=== PATIENT | female | born 1970 | race Caucasian/White ===

== ENCOUNTER 2018-08-26 21:12 | Inpatient (IN) ==
[2018-08-26 21:32] LABS: BASO# 0.03 X1000 (0.0-0.2); BASO% 0.4 % (0.0-0.8); EOS# 0.18 X1000 (0.0-0.7); EOS% 2.5 % (0.0-10.0); HEMATOCRIT 38.5 % (37.0-47.0); HEMOGLOBIN 11.6 g/dL (12.0-16.0); LYMPH# 1.72 X1000 (1.2-3.4); LYMPH% 24.2 % (20.5-51.1); MCH 23.2 PG (27-31); MCHC 30.1 g/dL (33-37); MCV 76.8 FL (81-99); MONO# 0.41 X1000 (0.11-0.59); MONO% 5.8 % (1.7-9.3); MPV 11.1 FL (7.4-10.4); NEUT# 4.78 X1000 (1.4-6.5); NEUT% 67.1 % (42.2-75.2); PLT 229 X1000 (130-400); RBC 5.01 XMIL (4.2-5.4); WBC 7.12 X1000 (4.8-10.8)
[2018-08-26 22:19] LABS: ALB/GLOB RATIO 0.9; ALBUMIN 3.5 g/dL (3.5-5.0); CALCIUM 8.5 mg/dL (8.8-10.2); CREATININE 1.3 mg/dL (0.5-0.9); TOTAL BILIRUBIN 0.44 mg/dL (0.20-1.00); TOTAL PROTEIN 7.6 g/dL (6.3-8.3)
[2018-08-26 22:21] LABS: POTASSIUM 1.8 mmol/L (3.5-5.1)
[2018-08-26] MEDS ORDERED: POTASSIUM CHLORIDE 40 MEQ in NS 1,000 ML IV ONE (23:30)
[2018-08-26] MEDS ORDERED: KLOR-CON PO ONE (23:31)
--- NOTE | 2018-08-27 00:08 | PROVIDER DOCUMENTATION ---
This chart was entered by Aldair Avitia Scribe, acting as scribe for Orlando Casanova MD. HPI-General Adult - General Chief Complaint: Abnormal Lab[s] Stated Complaint: FREE CLINIC REFERRAL, ABNORMAL LABWORK Time Seen by Provider: 08/26/18 23:32 Source: patient Allergies/Adverse Reactions: Patient Allergies Allergy/AdvReac Type Severity Reaction Status Date / Time No Known Allergies Allergy Verified 05/28/16 19:14 Home Medications: Home Medication List Medication Instructions Recorded Confirmed Last Taken Type Albuterol Sulfate Inhaler 2 puff INH Q6H PRN PRN 01/16/13 06/12/17 05/28/16 History [Ventolin Hfa] Alprazolam [Alprazolam Odt] 0.5 mg PO PRN PRN 01/16/13 06/12/17 05/28/16 History Lisinopril/Hydrochlorothiazide 1 each PO DAILY 01/16/13 06/12/17 05/28/16 History [Lisinopril-Hctz 20-12.5 mg Tab] Cetirizine HCl [Zyrtec] 1 tab PO DAILY 05/28/16 06/12/17 05/28/16 History D-Methorphan/P-Epd/Bpm [Bromfed Dm 5 ml PO Q4H PRN #120 ml 06/12/17 Unknown Rx Liquid] Oseltamivir [Tamiflu] 75 mg PO BID #10 cap 06/12/17 Unknown Rx CefDINIR [Omnicef] 300 mg PO BID 10 Days #20 cap 08/23/18 Unknown Rx Fexofenadine [Marah] 180 mg PO DAILY #30 tab 08/23/18 Unknown Rx Guaifenesin [Guaifenesin ER] 1,200 mg PO BID #14 tab.er.12h 08/23/18 Unknown Rx Methylprednisolone [Medrol Dosepak] 4 mg PO DIRECTED #1 pkg 08/23/18 Unknown Rx Neomycin/Polymyxin B Sulf/Hc 1 b OT DIRECTED 7 Days #1 b 08/23/18 Unknown Rx [Dzaxzcqe-Nmshzlwwp-If Ear Susp] - History of Present Illness -Gen Adult Nature of Presenting Problems: Pt is a 47 y/o F sent to the ED by Dr Mohamud office for a K+ 1.9. Pt denies pain and injury. She c/o of weakness. She reports not taking a potassium supplement even though she take a diuretic. Location of Pain/Injury: reports: none Pain Radiation: reports: no radiation Quality of Pain: reports: none Severity: reports: mild Onset/Duration: reports: gradual Similar Symptoms Previously?: No Recently seen or treated by another doctor?: No Review of Systems - Adult - REVIEW OF SYSTEMS - ADULT Constitutional: reports: other (weakness). denies: chills, fever Eyes: reports: no symptoms reported Ears, Nose, Mouth & Throat: reports: no symptoms reported Cardiovascular: denies: chest pain, edema, palpitations, syncope Respiratory: denies: cough, shortness of breath, wheezing Gastrointestinal: denies: abdominal pain, nausea, vomiting Genitourinary: reports: no symptoms reported Musculoskeletal: denies: back pain, neck pain Integumentary: reports: no symptoms reported Neurological: denies: dizziness/vertigo, headache/migraines Psychiatric: reports: no symptoms reported Endocrine: reports: no symptoms reported Hematologic/Lymphatic: reports: no symptoms reported Allergic/Immunologic: reports: no symptoms reported All Other Systems: Reviewed and Negative Past History - Adult - PAST MEDICAL HISTORY-ADULT Review of Records: reports: Old Records Reviewed, Nursing Assessment Review, Medications Reviewed Cardiovascular: reports: HTN Respiratory: reports: asthma Psychiatric: reports: anxiety - PRIOR SURGERIES/PROCEDURES Surgical/Procedure History: reports: BTL - IMMUNIZATION STATUS Childhood Immunizations: See Nurse Assessment Flu Vaccine: See Nurse Assessment - FAMILY HISTORY Family History: reviewed, not pertinent - SOCIAL HISTORY Smoking: cigarettes, less than 1 pack/day Living Situation: family Physical Exam-General - PHYSICAL EXAM-ADULT Initial Vital Signs Reviewed: Yes - CONSTITUTIONAL General Appearance: appears well, alert, no apparent distress - EYES Eyes: PERRL/EOMI, pink conjunctivae - HEAD, EARS, NOSE, MOUTH & THROAT HENMT: moist mucous membranes, normal ENT inspection, pharynx normal - NECK Neck: non-tender, full range of motion, supple, normal inspection - RESPIRATORY Respiratory: lungs clear, normal breath sounds, no pleuratic chest pain, no respiratory distress, no accessory muscle use - CARDIOVASCULAR Cardiovascular: normal peripheral pulses, regular rate, rhythm - GASTROINTESTINAL (ABDOMEN) Abdominal Exam: normal bowel sounds, non tender, soft - MUSCULOSKELETAL Back Exam: normal inspection, no CVA tenderness, no vertebral tenderness Extremity: normal range of motion, non-tender, normal gait, normal inspection - SKIN Integumentary: normal color, normal turgor, warm/dry - NEUROLOGIC Neurologic: grossly normal, no motor/sensory deficits - PSYCHIATRIC Psych/Mental Status: normal mood/affect, normal thought content, normal thought process, oriented x 3 Progress - PLAN OF CARE/RESULTS Progress/Plan/Lab Results: Vital Signs - 8 hr 08/26/18 21:15 Temperature 97.8 F Pulse Rate 88 Respiratory Rate 16 Blood Pressure 130/76 O2 Sat by Pulse Oximetry 96 Laboratory Results - last 24 hr 08/26/18 08/26/18 21:24 21:24 WBC 7.12 RBC 5.01 Hgb 11.6 L Hct 38.5 MCV 76.8 L MCH 23.2 L MCHC 30.1 L RDW Std Deviation 18.0 H Plt Count 229 MPV 11.1 H Immature Gran % (Auto) 0.0 Neut % (Auto) 67.1 Lymph % (Auto) 24.2 [place] % (Auto) 5.8 Eos % (Auto) 2.5 Baso % (Auto) 0.4 Immature Gran # (Auto) 0.00 Neut # (Auto) 4.78 Lymph # (Auto) 1.72 [place] # (Auto) 0.41 Eos # (Auto) 0.18 Baso # (Auto) 0.03 Sodium 146 H Potassium 1.8 L* Chloride 87 L Carbon Dioxide 45 H Anion Gap 14 BUN 13 Creatinine 1.3 H Estimated GFR/1.73 m2 44 BUN/Creatinine Ratio 10 Glucose 130 H Calculated Osmolality 292 Calcium 8.5 L Total Bilirubin 0.44 AST 97 H ALT 47 H Alkaline Phosphatase 78 Total Protein 7.6 Albumin 3.5 Globulin 4.1 Albumin/Globulin Ratio 0.9 Orders Category Date Time Status CBC WITH ELECTRONIC DIFF [HEME] Stat Lab 08/26/18 21:24 Completed CMP [COMPREHENSIVE METABOLIC PANEL] [CHEM] Stat Lab 08/26/18 21:24 Completed 0.9% Sodium Chloride Inj [Ns] 1,000 ml Med 08/26/18 23:30 Active Potassium Chloride 40 meq IV 250 mls/hr Potassium Chloride E.r. [Klor-Con] Med 08/26/18 23:31 Discontinued 20 meq PO NOW ONE Result Diagrams: 08/26/18 21:24 08/26/18 21:24 - CONSULTS/PCP/HOSPITALIST Notification #1 *Consult/PCP/Hospitalist*: Hospitalist- Dr Wisdom Time Discussed: 23:40 Reason/Comments: admission Consult Disposition: Will see in ED (Accpets) Departure - Departure Date of Disposition Decision: 08/27/18 Time of Disposition Decision: 00:07 DIAGNOSIS: Hypokalemia Disposition: ADMITTED INPATIENT 09 Certified Medical Emergency: Emergent Condition: Fair Referrals and Follow-Ups: Aubrey Mohamud MD [Primary Care Provider] - - Critical Care Note This patient required my direct & personal management of CC.: No Attestation - Physician/ YOSEPH Attestation Patient care was provided by Advanced Practice Provider:: No The physician spent face to face time with patient:: Yes Advanced Practice Provider documentation review:: Supervising physician onsite and consulted in the evaluation and care of this patient. The physician did have a face to face encounter with the patient. This chart was documented by the indicated scribe, (Aldair Avitia Scribe) and accurately reflects the services I performed and decisions made by me, Orlando Casanova MD, as attested by the provider's signature.
[2018-08-27 01:07] LABS: MAGNESIUM 2.1 mg/dL (1.5-2.7); PHOSPHORUS 2.6 mg/dL (2.7-4.5)
--- NOTE | 2018-08-27 02:11 | HISTORY AND PHYSICAL ---
PRIMARY CARE PHYSICIAN: Dr. Aubrey Mohamud. CHIEF COMPLAINT: A 47-year-old female with a history of hypertension, who apparently went to her physician's office earlier today, where she had lab work done and was called to go to the emergency department due to her potassium being low. She was evaluated in the emergency department. She had repeat labs done, which did confirm that her potassium was low, and due to patient being hypokalemic it was thought that she would require admission for further management. At the time of my examination, patient denied any headache, fever, chills, nausea, vomiting, diarrhea, hemoptysis, melena, weight changes, but complained of having cramps in her legs and not feeling well. PAST MEDICAL HISTORY: Includes hypertension. PAST SURGICAL HISTORY: None. ALLERGIES: No known drug allergies. CURRENT MEDICATIONS: Include albuterol inhaler, lisinopril 20 mg p.o. daily, Marah 180 mg p.o. daily. SOCIAL HISTORY: A 20 pack years history of smoking. Admits to social alcohol use. Denies any illicit drug use. FAMILY HISTORY: No history of coronary disease. REVIEW OF SYSTEMS: Fourteen-point review of systems is as in HPI. Other systems negative. PHYSICAL EXAMINATION: GENERAL: Cooperative, friendly female, she is resting comfortably now. VITAL SIGNS: Temperature 97.8 degrees, pulse 80, respirations 16, blood pressure 130/76, she is saturating 96% on room air. HEENT: Atraumatic, normocephalic. Extraocular movements intact. PERRLA. NECK: Supple. CHEST: Clear to auscultation. CARDIOVASCULAR: Regular rate and rhythm. ABDOMEN: Soft, positive bowel sounds. EXTREMITIES: No edema. NEUROLOGIC: She is awake, alert, oriented x3. GENITOURINARY: No bladder distention. SKIN: Warm. LABORATORIES AND STUDIES: Sodium 146, potassium 1.8, chloride 87, CO2 is 45, BUN is 13, creatinine is 1.3. Glucose 130. WBCs 7.12, hemoglobin 11.6, hematocrit 38.5, platelets 229,000. ASSESSMENT: A 47-year-old female with a history of hypertension, who had presented to emergency department due to abnormal labs that were done outpatient. She was evaluated in the emergency department, she had repeat laboratories, which did confirm the patient was hypokalemic with a potassium of 1.8. Due to her presenting symptoms, she will require admission for further management. 1. Hypokalemia. 2. Hypertension. PLAN: 1. We will admit patient to medical floor with telemetry. 2. We will replace her potassium and continue with IV fluids. 3. Monitor blood pressure closely. 4. We will also check other laboratories, including magnesium. 5. Put patient on deep venous thrombosis prophylaxis, sequential compression devises. 6. Continue to follow and reassess. Make further recommendation based on patient's clinical course. cc: Agustin Wisdom MD MTDD
--- NOTE | 2018-08-27 08:13 | PROGRESS NOTE ---
DATE: 08/27/2018 SUBJECTIVE: Patient is a 47-year-old white female patient of [facility] who presented to the emergency room with abnormal lab value, low potassium of 1.8. She apparently takes a fluid pill, but no potassium. Record reveals hydrochlorothiazide 12.5 mg 1 daily. She has been feeling weak and had some leg cramps. She went to [facility] last night and had lab work. I was called later in the evening with abnormal potassium value of 1.8. She had not been seen by me in the past. She was admitted for potassium repletion and for further evaluation. There is history of smoking and COPD. OBJECTIVE: Vital signs: Temperature 98.7 degrees, heart rate 82, respiration 16, blood pressure 124/65, O2 saturation on nasal oxygen 93%. PLAN: Continue to give potassium both IV and p.o. Potassium will be rechecked this afternoon at 4. cc: Aubrey Mohamud MD
[2018-08-27] MEDS ORDERED: KLOR-CON PO SCH (09:00)
[2018-08-27] MEDS: POTASSIUM CHLORIDE 20 MEQ/SWI 20 MEQ/100 ML IVPB IV SCH ×2 (09:59→16:20)
[2018-08-27] MEDS: ALLEGRA PO SCH (10:01)
[2018-08-27] MEDS: PRINIVIL PO SCH (10:02)
[2018-08-27] MEDS ORDERED: NS 1,000 ML ONE (14:04)
[2018-08-27] MEDS: NS + KCL 20 MEQ 1,000 ML IV SCH (15:01)
[2018-08-27] MEDS ORDERED: KLOR-CON PO ONE (16:59)
[2018-08-27] MEDS: TYLENOL PO PRN (18:21)
[2018-08-27] MEDS: DUONEB (A & A) INH PRN (19:45)
[2018-08-27] MEDS: KLOR-CON PO SCH (21:02)
[2018-08-28] MEDS: NS + KCL 20 MEQ 1,000 ML IV SCH ×2 (07:21→17:43)
[2018-08-28 08:13] LABS: AGAP 9; BUN 8 mg/dL (8-22); CALCIUM 7.9 mg/dL (8.8-10.2); CHLORIDE 92 mmol/L (98-107); COSMO 289; CREATININE 0.8 mg/dL (0.5-0.9); ESTIMATED GFR > 60; GLUCOSE 128 mg/dL (70-104); SODIUM 145 mmol/L (136-145); TCO2 44 mmol/L (25-35)
[2018-08-28 08:20] LABS: POTASSIUM 2.1 mmol/L (3.5-5.1)
--- NOTE | 2018-08-28 08:25 | PROGRESS NOTE ---
DATE: 08/28/2018 VITAL SIGNS: Stable with temperature 98.1 degrees, heart rate 84, respiration 18, blood pressure 146/75, O2 saturation on nasal oxygen 95%. Potassium is pending. SUBJECTIVE: She apparently took off her oxygen to go to the bathroom last night, and nurses found her O2 saturation to be in the 80s. O2 was restarted. Lungs are clear. Hypoxia is probably related to chronic lung disease from smoking. PLAN: If her potassium is over 2.5, discharge will be considered. cc: Aubrey Mohamud MD
[2018-08-28] MEDS: KLOR-CON PO SCH ×2 (09:08→20:50)
[2018-08-28] MEDS: PRINIVIL PO SCH (09:08)
[2018-08-28] MEDS: ALLEGRA PO SCH (09:08)
[2018-08-28] MEDS: POTASSIUM CHLORIDE 20 MEQ/SWI 20 MEQ/100 ML IVPB IV SCH ×3 (11:28→17:42)
[2018-08-28] MEDS ORDERED: NS 500 ML ONE (11:32)
[2018-08-29] MEDS: NS + KCL 20 MEQ 1,000 ML IV SCH ×2 (05:10→18:28)
[2018-08-29] MEDS: PRINIVIL PO SCH ×2 (09:05→20:42)
[2018-08-29] MEDS: ALLEGRA PO SCH (09:05)
[2018-08-29] MEDS: KLOR-CON PO SCH ×2 (09:06→20:41)
--- NOTE | 2018-08-29 11:09 | PROGRESS NOTE ---
DATE: 08/29/2018 SUBJECTIVE: The patient has no new complaints. She came in for hypokalemia after being on lisinopril/hydrochlorothiazide. Initially, her potassium was 1.8 and it is up to 2.4 now with supplementation. OBJECTIVE: Blood pressure is 143/84, respirations 16, pulse 72, and temperature 98 degrees Fahrenheit.HEENT: She is normocephalic. EOMS intact. PERRLA. Throat clear. Lungs: Clear to auscultation and percussion without rhonchi, rales, or wheezes. Heart: Regular rate and rhythm without murmurs, gallops, or friction rubs. Abdomen: Soft. Active bowel sounds. No organomegaly or tenderness. ASSESSMENT: 1. Severe hypokalemia. 2. Hypertension. 3. Morbid obesity. PLAN: Continue to supplement potassium and watch blood pressure. cc: MD Aubrey Cuevas Jr, MD
[2018-08-29] MEDS: DUONEB (A & A) INH PRN (11:54)
[2018-08-30] MEDS: TYLENOL PO PRN (03:13)
[2018-08-30] MEDS: NS + KCL 20 MEQ 1,000 ML IV SCH ×4 (05:37→21:20)
[2018-08-30 07:48] LABS: AGAP 10; BUN 8 mg/dL (8-22); CALCIUM 8.2 mg/dL (8.8-10.2); CHLORIDE 100 mmol/L (98-107); COSMO 289; CREATININE 0.8 mg/dL (0.5-0.9); ESTIMATED GFR > 60; GLUCOSE 108 mg/dL (70-104); POTASSIUM 2.7 mmol/L (3.5-5.1); SODIUM 146 mmol/L (136-145); TCO2 36 mmol/L (25-35)
[2018-08-30] MEDS: ALLEGRA PO SCH (09:02)
[2018-08-30] MEDS: PRINIVIL PO SCH ×2 (09:02→20:03)
[2018-08-30] MEDS: KLOR-CON PO SCH ×2 (09:02→20:03)
--- NOTE | 2018-08-30 13:19 | PROGRESS NOTE ---
DATE: 08/30/2018 SUBJECTIVE: Ms. Esteves potassium is 2.7. She is refusing IV potassium and she is getting 40 mEq potassium by mouth. We will repeat her electrolytes again tomorrow. -8 cc: MD Aubrey Diallo MD
[2018-08-30] MEDS: DUONEB (A & A) INH PRN (16:10)
[2018-08-31 07:40] VITALS: BP 144/81
[2018-08-31 07:56] LABS: AGAP 11; BUN 9 mg/dL (8-22); CALCIUM 8.2 mg/dL (8.8-10.2); CHLORIDE 103 mmol/L (98-107); COSMO 286; CREATININE 0.8 mg/dL (0.5-0.9); ESTIMATED GFR > 60; GLUCOSE 116 mg/dL (70-104); SODIUM 144 mmol/L (136-145); TCO2 30 mmol/L (25-35)
[2018-08-31] MEDS: KLOR-CON PO SCH (08:07)
[2018-08-31] MEDS: ALLEGRA PO SCH (08:07)
[2018-08-31] MEDS: PRINIVIL PO SCH (08:07)
[2018-08-31] MEDS: NS + KCL 20 MEQ 1,000 ML IV SCH (08:07)
--- NOTE | 2018-08-31 12:25 | PROGRESS NOTE ---
DATE: 08/31/2018 Ms Esteves is doing somewhat better. Her potassium is 3.0. Vital signs are stable. She is insisting on going home. We will discharge her upon request today. I will give her a prescription of KCl 20 mEq 3 times a day. -8 cc: MD Aubrey Diallo MD
--- NOTE | 2018-09-01 20:55 | DISCHARGE SUMMARY ---
ADMISSION DATE: 08/27/2018 DISCHARGE DATE: 08/31/2018 FINAL DIAGNOSES: 1. Hypertension. 2. Hypokalemia. This is the first recent [facility] admission for this 47-year-old white female patient of [facility] who had laboratory work done the night before admission and potassium was found to be 1.8. She was given 40 mEq of IV potassium chloride in the emergency room and was admitted for further treatment of hypokalemia. INITIAL LABORATORY: Hemoglobin 11.6, hematocrit 38.5, white blood count 7100, potassium 1.8, phosphorus 2.6, magnesium 2.1, BUN 8, creatinine 0.8. HOSPITAL COURSE: After the initial potassium in the emergency room, a 2nd IV was restarted after her 1st infiltrated. She did not tolerate any concentration of potassium in this IV and was given p.o. potassium. Potassium slowly lenin with level 08/27 2.0, 08/28 2.1, 08/29 2.4, 08/30 2.7 and 08/31 3.0. She was discharged home by Dr. Juan and prescription was given for p.o. potassium 10 mEq t.i.d. for 1 week then once a day. Potassium will be rechecked at [facility] in 1 week. She is to continue usual medication including albuterol, ProAir HFA p.r.n., guaifenesin, lisinopril 20 mg daily and hydrochlorothiazide 12.5 mg daily. cc: Aubrey Mohamud MD
== END 2018-08-31 10:57 | disposition home or self-care (01) | DRG 641 ==
LOC: ED 21:12 → 3N 08-27 01:36 → SUATTDRO 08-27 01:36
PROVIDERS: ADMIT Family Medicine; ATTEND Family Medicine
CPT/HCPCS: 80048; 80053; 83735; 84100; 84132; 85025; 94640; 94761; 96365; 99285; A9270; J3480; J7030; J7040